=== PATIENT | female | born 1950 | race Caucasian/White ===

== ENCOUNTER 2018-02-25 18:18 | Emergency (ER) | payer MEDICARE, BC ==
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
[2018-02-25] MEDS: Ketorolac 60 MG/2 ML SDV IM ONE (19:55)
== END 2018-02-25 20:32 | disposition home or self-care (01) ==
LOC: JP.ED 18:18
DX: S20.211A Contusion of right front wall of thorax, initial encounter (principal); S30.0XXA Contusion of lower back and pelvis, initial encounter; I10 Essential (primary) hypertension; E03.9 Hypothyroidism, unspecified; Z88.1 Allergy status to other antibiotic agents; Z88.2 Allergy status to sulfonamides; V86.59XA Driver of other special all-terrain or other off-road motor vehicle injured in nontraffic accident, initial encounter
CPT/HCPCS: 71250; 72192; 96372; 99285; J1885